=== PATIENT | male | born 1990 | race Caucasian/White ===

== ENCOUNTER 2018-02-28 12:49 | Emergency (ER) | payer OTHER ==
[2018-02-28] MEDS ORDERED: ASPIRIN 81 MG PO STA (14:04)
[2018-02-28] MEDS ORDERED: SODIUM CHLORIDE 0.9% 1,000 ML IV STA (14:04)
[2018-02-28 14:54] LABS: Basophils % (A) 1 %; Eosinophils # (A) 0.1 k/uL (0-0.7); Eosinophils % (A) 2 %; HCT 36.5 % (39.0-53.0); HGB 12.3 gm/dL (13.0-17.5); Lymphocytes # (A) 2.6 k/uL (1.0-4.8); Lymphocytes % (A) 38 %; MCH 28.1 pg (25.0-35.0); MCHC 33.6 g/dL (31.0-37.0); MCV 83.5 fL (80.0-100.0); Mean Platelet Volume 6.6; Monocytes # (A) 0.3 k/uL (0-1.0); Monocytes % (A) 5 %; Neutrophils # (A) 3.5 k/uL (1.3-7.7); Neutrophils % (A) 52 %; Platelet Count 249 k/uL (150-450); RBC 4.37 m/uL (4.30-5.90); RDW 13.2 % (11.5-15.5); WBC 6.7 k/uL (3.8-10.6)
--- NOTE | 2018-02-28 15:01 | XR ---
EXAMINATION TYPE: XR chest 2V DATE OF EXAM: 02/28/2018 COMPARISON: NONE. No prior study available in the PACS system. HISTORY: Chest pain and hypertension, shortness of breath TECHNIQUE: Frontal and lateral views of the chest are obtained. FINDINGS: There is no focal air space opacity, pleural effusion, or pneumothorax seen. The cardiac silhouette size is within normal limits. The osseous structures are intact. IMPRESSION: No acute cardiopulmonary process. No evidence of acute infiltrate or vascular decompensa tion.
[2018-02-28 15:08] LABS: Creatine Kinase 62 U/L (55-170)
--- NOTE | 2018-02-28 15:09 | US ---
EXAMINATION TYPE: US venous doppler duplex LE LT DATE OF EXAM: 02/28/2018 2:45 PM COMPARISON: NONE CLINICAL HISTORY: Left leg Pain and swelling. SIDE PERFORMED: Left TECHNIQUE: The lower extremity deep venous system is examined utilizing real time linear array sonog rose with graded compression, doppler sonography and color-flow sonography. VESSELS IMAGED: External Iliac Vein (EIV) Common Femoral Vein Deep Femoral Vein Greater Saphenous Vein * Femoral Vein Popliteal Vein Small Saphenous Vein * Proximal Calf Veins (* superficial vessels) Left Leg: Negative for DVT Multiple lymph nodes visualized within the left groin, largest measuring 1.5 x 0.7 x 1.0 cm IMPRESSION: Grayscale, color doppler, spectral doppler imaging performed of the deep veins of the lo wer extremities. There is normal flow, compressibility, vascular waveforms. No evidence to suggest deep venous thrombosis at or above the left knee. Multiple lymph nodes as described above the largest one measuring 1.5 x 0.7 x 1 cm.
[2018-02-28 15:10] LABS: ALT 41 U/L (21-72); AST 22 U/L (17-59); Alkaline Phosphatase 34 U/L (38-126); Anion Gap 4 mmol/L; Blood Urea Nitrogen 20 mg/dL (9-20); C Reactive Protein <5.0 mg/L (<10.0); Calcium 9.1 mg/dL (8.4-10.2); Carbon Dioxide 31 mmol/L (22-30); Chloride 102 mmol/L (98-107); Glucose 88 mg/dL (74-99); Magnesium 2.1 mg/dL (1.6-2.3); Potassium 5.2 mmol/L (3.5-5.1); Sodium 137 mmol/L (137-145); Total Bilirubin 0.3 mg/dL (0.2-1.3); Total Protein 6.4 g/dL (6.3-8.2)
[2018-02-28 15:16] LABS: D-Dimer 0.22 mg/L FEU (<0.60); INR 1.1 (<1.2); Partial Thromboplastin Time 24.2 sec (22.0-30.0); Prothrombin Time 10.4 sec (9.0-12.0)
[2018-02-28 15:21] LABS: Creatine Kinase MB 0.3 ng/mL (0.0-2.4); Troponin I <0.012 ng/mL (0.000-0.034)
[2018-02-28 15:37] VITALS: RESP 18; TEMP 98.2
--- NOTE | 2018-02-28 15:45 | ED ---
Extremity Problem HPI - General Chief complaint: Extremity Problem,Nontraumatic Stated complaint: lt ankle/calf pain Time Seen by Provider: 02/28/18 13:14 Source: patient, RN notes reviewed Mode of arrival: ambulatory Limitations: no limitations - History of Present Illness Initial comments: This is a 27-year-old male who presents to the emergency department with chief complaint of left lower extremity pain and swelling. Patient is a resident at [facility]. Patient states that he has had multiple surgeries on the left ankle. He states that yesterday he noticed pain and swelling to the left lower extremity. He denies any falls, injuries or trauma. Patient states that there is pain in his calf as well as the ankle. Denies any recent surgeries or hospitalizations. Denies history of blood clots. Patient states that this morning at approximately 7:15 AM he developed chest pain. He describes it as intermittent and sharp and stabbing over the left side of his chest. He admits to associated shortness of breath during these episodes. Denies any fevers or chills, abdominal pain, nausea or vomiting, dizziness or headache. He reports a history of chronic pancreatitis and fluid overload. He states he has had to have fluid drained off of his lungs. He states that he was told that the left side of his heart is weaker than the right side of his heart. Patient also reports early onset of cardiac disease in his family. He states that his father first had a heart attack at age 28. - Related Data Allergies Allergy/AdvReac Type Severity Reaction Status Date / Time acetaminophen Allergy Unknown Verified 02/28/18 13:16 [From Tylenol-Codeine] codeine Allergy Unknown Verified 02/28/18 13:16 [From Tylenol-Codeine] ketorolac [From Toradol] Allergy Unknown Verified 02/28/18 13:16 tramadol Allergy Unknown Verified 02/28/18 13:16 Review of Systems ROS Statement: Those systems with pertinent positive or pertinent negative responses have been documented in the HPI. ROS Other: All systems not noted in ROS Statement are negative. Past Medical History Past Medical History: Hypertension History of Any Multi-Drug Resistant Organisms: None Reported Past Surgical History: Appendectomy, Cholecystectomy Additional Past Surgical History / Comment(s): left ankle times 4 Past Psychological History: Anxiety, Depression Smoking Status: Current every day smoker Past Alcohol Use History: None Reported Past Drug Use History: Cocaine, Heroin General Exam - General Exam Comments Initial Comments: General: Awake and alert, well-developed; in no apparent distress. HEENT: Head atraumatic, normocephalic. Pupils are equal, round and reactive to light. Extraocular movements intact. Oropharynx moist without erythema or exudate. Neck: Supple. Normal ROM. Cardiovascular: Regular rate and rhythm. No murmurs, rubs or gallops. Chest symmetrical. Respiratory: Lungs clear to auscultation bilaterally. No wheezes, rales or rhonchi. Normal respiratory effort with no use of accessory muscles. Musculoskeletal: Normal range of motion of bilateral upper and lower extremities. There is generalized soft tissue swelling and tenderness of the left ankle. Tenderness on palpation of posterior left calf. Sensation is intact. Pedal pulses are 2+ equal and palpable bilaterally. Skin: [place], warm and dry without rashes or lesions. Neurological: Alert and oriented x3. CN II-XII grossly intact. Speech is fluent and answers are appropriate. No focal neuro deficits. Psychiatric: Normal mood and affect. No overt signs of depression or anxiety noted. Limitations: no limitations Course Vital Signs 02/28/18 02/28/18 13:16 15:37 Temperature 98 F 98.2 F Pulse Rate 48 L 47 L Respiratory 16 18 Rate Blood Pressure 95/50 98/60 O2 Sat by Pulse 100 97 Oximetry Medical Decision Making - Medical Decision Making This is a 27-year-old male who presented to the emergency department with chief complaint of left lower extremity pain and swelling. Patient states that he's had multiple surgeries on the left ankle. He states that the left ankle and calf became swollen and painful yesterday. On physical examination, there is generalized soft tissue swelling to the left ankle with tenderness on palpation of the left ankle and calf. Patient is neurovascularly intact. An x-ray of the left ankle was obtained which revealed no acute abnormalities. Ultrasound venous Doppler duplex of the left lower extremity was negative for an acute DVT. Patient also complained of onset of chest pain and shortness of breath that began this morning. EKG revealed sinus bradycardia. Patient was given a liter bolus of fluids. Chest x-ray revealed no acute abnormalities. CBC and CMP were unremarkable. Troponin and d-dimer were negative. Patient's vital signs are stable and he is in no acute distress. He will be discharged home at this time. All questions were answered. - Lab Data Result diagrams: 02/28/18 14:20 02/28/18 14:20 Lab Results 02/28/18 02/28/18 02/28/18 Range/Units 14:20 14:20 14:20 WBC 6.7 (3.8-10.6) k/uL RBC 4.37 (4.30-5.90) m/uL Hgb 12.3 L (13.0-17.5) gm/dL Hct 36.5 L (39.0-53.0) % MCV 83.5 (80.0-100.0) fL MCH 28.1 (25.0-35.0) pg MCHC 33.6 (31.0-37.0) g/dL RDW 13.2 (11.5-15.5) % Plt Count 249 (150-450) k/uL Neutrophils % 52 % Lymphocytes % 38 % Monocytes % 5 % Eosinophils % 2 % Basophils % 1 % Neutrophils # 3.5 (1.3-7.7) k/uL Lymphocytes # 2.6 (1.0-4.8) k/uL Monocytes # 0.3 (0-1.0) k/uL Eosinophils # 0.1 (0-0.7) k/uL Basophils # 0.0 (0-0.2) k/uL PT (9.0-12.0) sec INR (<1.2) APTT (22.0-30.0) sec D-Dimer (<0.60) mg/L FEU Sodium 137 (137-145) mmol/L Potassium 5.2 H (3.5-5.1) mmol/L Chloride 102 (98-107) mmol/L Carbon Dioxide 31 H (22-30) mmol/L Anion Gap 4 mmol/L BUN 20 (9-20) mg/dL Creatinine 1.10 (0.66-1.25) mg/dL Est GFR (CKD-EPI)AfAm >90 (>60 ml/min/1.73 sqM) Est GFR (CKD-EPI)NonAf >90 (>60 ml/min/1.73 sqM) Glucose 88 (74-99) mg/dL Calcium 9.1 (8.4-10.2) mg/dL Magnesium 2.1 (1.6-2.3) mg/dL Total Bilirubin 0.3 (0.2-1.3) mg/dL AST 22 (17-59) U/L ALT 41 (21-72) U/L Alkaline Phosphatase 34 L (38-126) U/L Total Creatine Kinase 62 (55-170) U/L CK-MB (CK-2) 0.3 (0.0-2.4) ng/mL CK-MB (CK-2) Rel Index 0.5 Troponin I <0.012 (0.000-0.034) ng/mL C-Reactive Protein <5.0 (<10.0) mg/L Total Protein 6.4 (6.3-8.2) g/dL Albumin 4.0 (3.5-5.0) g/dL 02/28/18 Range/Units 14:20 WBC (3.8-10.6) k/uL RBC (4.30-5.90) m/uL Hgb (13.0-17.5) gm/dL Hct (39.0-53.0) % MCV (80.0-100.0) fL MCH (25.0-35.0) pg MCHC (31.0-37.0) g/dL RDW (11.5-15.5) % Plt Count (150-450) k/uL Neutrophils % % Lymphocytes % % Monocytes % % Eosinophils % % Basophils % % Neutrophils # (1.3-7.7) k/uL Lymphocytes # (1.0-4.8) k/uL Monocytes # (0-1.0) k/uL Eosinophils # (0-0.7) k/uL Basophils # (0-0.2) k/uL PT 10.4 (9.0-12.0) sec INR 1.1 (<1.2) APTT 24.2 (22.0-30.0) sec D-Dimer 0.22 (<0.60) mg/L FEU Sodium (137-145) mmol/L Potassium (3.5-5.1) mmol/L Chloride (98-107) mmol/L Carbon Dioxide (22-30) mmol/L Anion Gap mmol/L BUN (9-20) mg/dL Creatinine (0.66-1.25) mg/dL Est GFR (CKD-EPI)AfAm (>60 ml/min/1.73 sqM) Est GFR (CKD-EPI)NonAf (>60 ml/min/1.73 sqM) Glucose (74-99) mg/dL Calcium (8.4-10.2) mg/dL Magnesium (1.6-2.3) mg/dL Total Bilirubin (0.2-1.3) mg/dL AST (17-59) U/L ALT (21-72) U/L Alkaline Phosphatase (38-126) U/L Total Creatine Kinase (55-170) U/L CK-MB (CK-2) (0.0-2.4) ng/mL CK-MB (CK-2) Rel Index Troponin I (0.000-0.034) ng/mL C-Reactive Protein (<10.0) mg/L Total Protein (6.3-8.2) g/dL Albumin (3.5-5.0) g/dL - EKG Data EKG Comments: 14:09:42. Marked sinus bradycardia, early repolarization. Ventricular rate 43 bpm, IA interval 132, QRS duration 90, QT/QTc 442/373. - Radiology Data Radiology results: report reviewed Chest x-ray impression: No acute cardiopulmonary process. No evidence of acute infiltrate or vascular decompensation. Ultrasound venous Doppler left lower extremity impression: Nance scale, color Doppler, spectral Doppler imaging performed at the deep veins of the lower extremities. There is normal flow, compressibility, vascular waveforms. No evidence to suggest deep venous thromboses at or above the left knee. Multiple lymph nodes within the left groin the largest one measuring 1.5 x 0.7 x 1 cm. Disposition Clinical Impression: Left ankle pain, Atypical chest pain Disposition: HOME SELF-CARE Condition: Good Instructions: Swollen Joint (ED), Chest Pain (ED) Additional Instructions: Please follow up with primary care provider within 1-2 days. Return to emergency department if symptoms should worsen or any concerns arise. Is patient prescribed a controlled substance at d/c from ED?: No Referrals: None,Stated [Primary Care Provider] - 1-2 days Time of Disposition: 16:37
[2018-02-28 16:26] VITALS: BP 99/58; PULSE 48
--- NOTE | 2018-02-28 16:26 | XR ---
EXAMINATION TYPE: XR ankle complete LT DATE OF EXAM: 02/28/2018 CLINICAL HISTORY: Pain TECHNIQUE: Frontal, lateral and oblique images of the left ankle are obtained. COMPARISON: None. No prior study available in the PACS system. FINDINGS: There is no acute fracture/dislocation evident in the left ankle. Moderate soft tissue sw elling is noted involving the medial and lateral malleolus. 2 metallic screws are traversing and singh sfixing the medial malleolus. The ankle mortise appears within normal limits. IMPRESSION: Postsurgical changes with 2 metallic compression screws transfixing the distal fibula and lateral mal leolus. Moderate soft tissue swelling involving the medial lateral malleolus with preservation of the ankle mortise. No focal bony destruction.
== END 2018-02-28 16:47 | disposition home or self-care (01) ==
LOC: EC 12:49
DX: M25.572 Pain in left ankle and joints of left foot (principal); R07.89 Other chest pain; M79.89 Other specified soft tissue disorders; R00.1 Bradycardia, unspecified; F17.200 Nicotine dependence, unspecified, uncomplicated; Z88.5 Allergy status to narcotic agent; Z88.6 Allergy status to analgesic agent
CPT/HCPCS: 36415; 71046; 80053; 82550; 82553; 83735; 84484; 85025; 85379; 85610; 85730; 86140; 93005; 96360; 96361; 99284

== ENCOUNTER 2018-03-27 11:17 | Emergency (ER) | payer OTHER ==
[2018-03-27 11:38] VITALS: RESP 18
[2018-03-27] MEDS ORDERED: hydrOXYzine HCL 25 MG TAB PO STA ×2 (11:48→12:03)
[2018-03-27] MEDS ORDERED: DEXAMETHASONE 4 MG TAB PO STA (11:48)
--- NOTE | 2018-03-27 12:08 | ED ---
General Adult HPI - General Chief complaint: Skin/Abscess/Foreign Body Stated complaint: ALLERGIC REACTION, STEPHEN Source: patient Mode of arrival: ambulatory Limitations: no limitations - History of Present Illness Initial comments: Dictation was produced using [employer] dictation software. please excuse any grammatical, word or spelling errors. Chief Complaint: 27-year-old male presents with rash History of Present Illness: Patient is a 27-year-old male with no significant past medical history presents with a rash. Patient has psychiatric history and is currently undergoing hair when recovery. He gets shots frequently. 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 He went home after his first shift 2 days ago. He will that the next day and had a diffuse itchy rash to his entire body. Patient is told to seek medical attention by his [employer] staff member to seek medical attention. The ROS documented in this emergency department record has been reviewed and confirmed by me. Those systems with pertinent positive or negative responses have been documented in the HPI. All other systems are other negative and/or noncontributory. - Related Data Previous Rx's Medication Instructions Recorded hydrOXYzine HCL [Atarax] 25 mg PO TID PRN #20 tab 03/27/18 Allergies Allergy/AdvReac Type Severity Reaction Status Date / Time codeine Allergy Unknown Verified 03/27/18 11:38 [From Tylenol-Codeine] ketorolac [From Toradol] Allergy Unknown Verified 03/27/18 11:38 tramadol Allergy Unknown Verified 03/27/18 11:38 Review of Systems ROS Statement: Those systems with pertinent positive or pertinent negative responses have been documented in the HPI. ROS Other: All systems not noted in ROS Statement are negative. Past Medical History Past Medical History: Hypertension Additional Past Medical History / Comment(s): chronic pancreatitis History of Any Multi-Drug Resistant Organisms: None Reported Past Surgical History: Appendectomy, Cholecystectomy, Orthopedic Surgery Additional Past Surgical History / Comment(s): left ankle times 4 Past Psychological History: Anxiety, Depression Smoking Status: Current every day smoker Past Alcohol Use History: None Reported Past Drug Use History: None Reported General Exam - General Exam Comments Initial Comments: PHYSICAL EXAM: General Impression: Alert and oriented x3, not in acute distress HEENT: Normocephalic atraumatic, extra-ocular movements intact, pupils equal and reactive to light bilaterally, mucous membranes moist. Cardiovascular: Heart regular rate and rhythm, S1&S2 audible, no murmurs, rubs or gallops Chest: Lungs clear to auscultation bilaterally, no rhonchi, no wheeze, no rales Abdomen: Bowel sounds present, abdomen soft, non-tender, non-distended, no organomegaly Musculoskeletal: Pulses present and equal in all extremities, no peripheral edema Motor: Power 5/5 bilaterally, no focal deficits noted Neurological: CN II-XII grossly intact, no focal motor or sensory deficits noted Skin: Erythematous macular rash to the entire surface area of the skin intermittently. There are small lesions measuring approximately 3 x 4 L there are diffuse through the extremities and back, no conjunctival lesions, no intraoral lesions Psych: Normal affect and mood Limitations: no limitations Course Vital Signs 03/27/18 11:35 Temperature 98.2 F Pulse Rate 73 Respiratory 18 Rate Blood Pressure 125/81 O2 Sat by Pulse 98 Oximetry Medical Decision Making - Medical Decision Making ED course: 27-year-old male with chief complaint of rash. Clinical presentation suspicious for erythema multiforme. vital signs upon arrival are within acceptable limits. There is some suspicion that this may represent rash secondary to bedbugs however more likely to be erythema multiforme. Strong clinical suspicion that this is a self-limiting rash. Patient does not have a primary care physician. Given Atarax and Decadron. Patient be discharged with prescription for hydroxyzine for when necessary itching. No clinical suspicion of scabies. No indication for antibiotics at this time. Disposition Clinical Impression: Rash Disposition: HOME SELF-CARE Condition: Good Instructions: Acute Rash (ED) Prescriptions: hydrOXYzine HCL [Atarax] 25 mg PO TID PRN #20 tab PRN Reason: Itching Is patient prescribed a controlled substance at d/c from ED?: No Referrals: None,Stated [Primary Care Provider] - 1-2 days Time of Disposition: 12:08
[2018-03-27 12:50] VITALS: BP 132/80; PULSE 72; TEMP 97.5
== END 2018-03-27 12:50 | disposition home or self-care (01) ==
LOC: EC 11:17
DX: R21 Rash and other nonspecific skin eruption (principal); R06.00 Dyspnea, unspecified; F17.200 Nicotine dependence, unspecified, uncomplicated; Z88.5 Allergy status to narcotic agent; Z88.6 Allergy status to analgesic agent
CPT/HCPCS: 99284; J8540

== ENCOUNTER 2018-05-20 13:01 | Emergency (ER) | payer OTHER ==
[2018-05-20] MEDS ORDERED: IPRATROPIUM-ALBUTEROL 3 ML NEB INHALATION STA (14:27)
[2018-05-20] MEDS ORDERED: IBUPROFEN 600 MG TAB PO STA (14:27)
--- NOTE | 2018-05-20 14:53 | XR ---
EXAMINATION TYPE: XR chest 2V DATE OF EXAM: 05/20/2018 COMPARISON: Prior chest 02/28/2018 HISTORY: Cough and congestion TECHNIQUE: Frontal and lateral views of the chest are obtained. FINDINGS: There is no focal air space opacity, pleural effusion, or pneumothorax seen. The cardiac silhouette size is within normal limits. The osseous structures are intact. IMPRESSION: No acute cardiopulmonary process.
[2018-05-20] MEDS ORDERED: predniSONE 20 MG TAB PO STA ×2 (15:09→15:40)
--- NOTE | 2018-05-20 15:12 | ED ---
URI HPI - General Chief Complaint: Upper Respiratory Infection Stated Complaint: Cough Time Seen by Provider: 05/20/18 14:13 Source: patient, RN notes reviewed, old records reviewed Mode of arrival: ambulatory Limitations: no limitations - History of Present Illness Initial Comments: 27 year old male with one week of cough, congestion and shortness of breath. Patient reports that he has been near other ill people. No recent motrin or tylenol. Patient complains of body ache, fever. Denies abdominal pain and vomiting. Patient reports history of past heroin abuse. Reports history of pancreatitis. Patient is a smoker. Patient reports sore throat due to cough. - Related Data Previous Rx's Medication Instructions Recorded Acetaminophen Tab [Tylenol Tab] 500 mg PO Q6H #20 tablet 05/20/18 Albuterol Inhaler [Ventolin Hfa 1 - 2 puff INHALATION RT-Q6H PRN 05/20/18 Inhaler] #1 inhaler Azithromycin [Zithromax] 250 mg PO DAILY #6 tab 05/20/18 Ibuprofen 600 mg PO TID #20 tablet 05/20/18 guaiFENesin-DM 600/30MG [Mucinex 1 each PO Q12HR #20 tab.er.12h 05/20/18 Dm] methylPREDNISolone Dose Pack 4 mg PO DIRECTED #21 package 05/20/18 [Medrol Dose Pack] Allergies Allergy/AdvReac Type Severity Reaction Status Date / Time codeine Allergy Unknown Verified 05/20/18 13:37 [From Tylenol-Codeine] ketorolac [From Toradol] Allergy Unknown Verified 05/20/18 13:37 tramadol Allergy Unknown Verified 05/20/18 13:37 Review of Systems ROS Statement: Those systems with pertinent positive or pertinent negative responses have been documented in the HPI. ROS Other: All systems not noted in ROS Statement are negative. Past Medical History Past Medical History: Hypertension Additional Past Medical History / Comment(s): chronic pancreatitis History of Any Multi-Drug Resistant Organisms: None Reported Past Surgical History: Appendectomy, Cholecystectomy, Orthopedic Surgery Additional Past Surgical History / Comment(s): left ankle times 4 Past Psychological History: Anxiety, Depression Smoking Status: Current every day smoker Past Alcohol Use History: None Reported Past Drug Use History: None Reported General Exam - General Exam Comments Initial Comments: Well appearing 27 yea rold male, no distress. Limitations: no limitations General appearance: alert, in no apparent distress Head exam: Present: atraumatic, normocephalic, normal inspection Eye exam: Present: normal appearance, PERRL, EOMI. Absent: scleral icterus, conjunctival injection, periorbital swelling ENT exam: Present: normal exam, mucous membranes moist Neck exam: Present: normal inspection. Absent: tenderness, meningismus, lymphadenopathy Respiratory exam: Present: normal lung sounds bilaterally, wheezes, other (cough ). Absent: respiratory distress, rales, rhonchi, stridor Cardiovascular Exam: Present: regular rate, normal rhythm, normal heart sounds. Absent: systolic murmur, diastolic murmur, rubs, gallop, clicks GI/Abdominal exam: Present: soft, normal bowel sounds. Absent: distended, tenderness, guarding, rebound, rigid Extremities exam: Present: normal inspection, full ROM, normal capillary refill. Absent: tenderness, pedal edema, joint swelling, calf tenderness Back exam: Present: normal inspection Course Vital Signs 05/20/18 05/20/18 05/20/18 13:05 15:05 15:17 Temperature 99.0 F Pulse Rate 112 H 92 90 Respiratory 22 Rate Blood Pressure 114/62 O2 Sat by Pulse 96 Oximetry 05/20/18 15:43 Temperature 98 F Pulse Rate 99 Respiratory 16 Rate Blood Pressure 154/79 O2 Sat by Pulse 98 Oximetry Medical Decision Making - Medical Decision Making 27 year old male with one week of cough, congestion and shortness of breath. Patient reports that he has been near other ill people. No recent motrin or tylenol. Patient is slight fever 99.8. Given ibuprofen, tylenol. He had wheezing noted, given douneb and IMsolumedrol. Patient appears well, and in no sign of respiratory distress. Discussed normal CXR but will treat for bronchitis with medrol dose pack and azithromycin. Discussed that patient should follow up with PCP. Discussed patient needs close return parameters. - Radiology Data Radiology results: report reviewed Normal CXR noted. Disposition Clinical Impression: Bronchitis Disposition: HOME SELF-CARE Condition: Good Instructions: Acute Bronchitis (ED) Additional Instructions: Patient advised follow-up with primary care provider. Return to emergency department if any alarming signs or symptoms occur. Prescriptions: Acetaminophen Tab [Tylenol Tab] 500 mg PO Q6H #20 tablet Albuterol Inhaler [Ventolin Hfa Inhaler] 1 - 2 puff INHALATION RT-Q6H PRN #1 inhaler PRN Reason: Shortness Of Breath Azithromycin [Zithromax] 250 mg PO DAILY #6 tab guaiFENesin-DM 600/30MG [Mucinex Dm] 1 each PO Q12HR #20 tab.er.12h Ibuprofen 600 mg PO TID #20 tablet methylPREDNISolone Dose Pack [Medrol Dose Pack] 4 mg PO DIRECTED #21 package Is patient prescribed a controlled substance at d/c from ED?: No Referrals: None,Stated [Primary Care Provider] - 1-2 days Cintia Garzon MD [STAFF PHYSICIAN] - 1-2 days Time of Disposition: 15:09
[2018-05-20 15:44] VITALS: BP 154/79; PULSE 99; RESP 16; TEMP 98
== END 2018-05-20 15:43 | disposition home or self-care (01) ==
LOC: EC 13:01
DX: J40 Bronchitis, not specified as acute or chronic (principal); F17.200 Nicotine dependence, unspecified, uncomplicated; Z88.5 Allergy status to narcotic agent; Z88.6 Allergy status to analgesic agent
CPT/HCPCS: 94640; 71046; 99285; J7512

== ENCOUNTER 2019-01-15 11:40 | Emergency (ER) | payer OTHER ==
[2019-01-15 11:49] VITALS: PULSE 72
--- NOTE | 2019-01-15 12:06 | ED ---
Extremity Problem HPI - General Chief complaint: Extremity Problem,Nontraumatic Stated complaint: Infection in Hand Time Seen by Provider: 01/15/19 11:56 Source: patient Mode of arrival: ambulatory Limitations: no limitations - History of Present Illness Initial comments: 28-year-old male with history of substance abuse on oxycodone 10 mg for chronic pain presenting today for chief complaint of right hand pain. Patient states he had a previous infection in October was hospitalized. He states he was then sent to a residential secondary to his addiction not being able to go home with a PICC line. He states he is given IV antibiotics. He states he was discharged home however has had chronic pain in the right hand sense. Patient states his home medications that seem to be working. He's been noting increasing pain. He states he's felt it seemed swollen. Patient denies any redness. Remaining review of systems negative. Upon arrival patient appears well no signs acute distress. Afebrile. - Related Data Home Medications Medication Instructions Recorded Confirmed Ibuprofen [Motrin] 600 mg PO BID PRN 01/15/19 01/15/19 Metoprolol Tartrate [Lopressor] 50 mg PO BID 01/15/19 01/15/19 Ondansetron HCl [Zofran] 8 mg PO BID PRN 01/15/19 01/15/19 cloNIDine 0.1 MG/24HR PATCH 1 patch TRANSDERM Q7D 01/15/19 01/15/19 [Catapres-TTS] oxyCODONE HCL [oxyCODONE HCL (IR)] 10 mg PO Q4H PRN 01/15/19 01/15/19 Allergies Allergy/AdvReac Type Severity Reaction Status Date / Time codeine Allergy Unknown Verified 01/15/19 12:47 [From Tylenol-Codeine] ketorolac [From Toradol] Allergy Unknown Verified 01/15/19 12:47 tramadol Allergy Unknown Verified 01/15/19 12:47 Review of Systems ROS Statement: Those systems with pertinent positive or pertinent negative responses have been documented in the HPI. ROS Other: All systems not noted in ROS Statement are negative. Past Medical History Past Medical History: Hypertension Additional Past Medical History / Comment(s): chronic pancreatitis History of Any Multi-Drug Resistant Organisms: None Reported Past Surgical History: Appendectomy, Cholecystectomy, Orthopedic Surgery Additional Past Surgical History / Comment(s): left ankle times 4 Past Psychological History: Anxiety, Depression Smoking Status: Current every day smoker Past Alcohol Use History: None Reported Past Drug Use History: None Reported General Exam - General Exam Comments Initial Comments: General: The patient is awake and alert, in no distress, and does not appear acutely ill. Eye: Pupils are equal, round and reactive to light, extra-ocular movements are intact. No nystagmus. There is normal conjunctiva bilaterally. No signs of icterus. Ears, nose, mouth and throat: There are moist mucous membranes and no oral lesions. Neck: The neck is supple, there is no tenderness or JVD. Cardiovascular: There is a regular rate and rhythm. No murmur, rub or gallop is appreciated. Respiratory: Lungs are clear to auscultation, respirations are non-labored, breath sounds are equal. No wheezes, stridor, rales, or rhonchi. Musculoskeletal: Normal inspection the hands bilaterally there is no erythema there is no soft tissue swelling. Patient able to fully range MTP DIP and PIP joints. There is no fusiform swelling there is no flexed positioning. Patient does admit to discomfort with range of motion in all digits. Normal ROM, no tenderness. Strength 5/5. Sensation intact. Radial pulses equal bilaterally 2+. Neurological: A&O x 3. CN II-XII intact, There are no obvious motor or sensory deficits. Coordination appears grossly intact. Speech is normal. Skin: Skin is warm and dry and no rashes or lesions are noted. Psychiatric: Cooperative, appropriate mood & affect, normal judgment. Limitations: no limitations Course Vital Signs 01/15/19 01/15/19 11:46 13:39 Temperature 98.7 F 97.9 F Pulse Rate 72 72 Respiratory 16 18 Rate Blood Pressure 111/70 106/78 O2 Sat by Pulse 99 99 Oximetry Medical Decision Making - Medical Decision Making 28-year-old male presenting for right hand pain. Patient states he was recently treated for an infection via IV antibiotics. Imaging studies reveal no findings consistent with an osteomyelitis there is no findings on examination are consistent with infection no swelling no redness no warmth. Patient is able to range the digits. Patient states the pain has been chronic since he had the infection. Patient goes to pain management clinic and is on opioids outpatient. Patient requesting more pain medication. Patient did have somewhat drug- seeking behavior.Patient was provided a dose of home medications. Given return parameters for redness, swelling, fevers. Patient was agreeable with care plan and discharge. I recommended seeking further management of pain with primary, unless increasing/different characteristic from chronic pain then I recommended return to the ER. Discussed case with Dr. Arguelles who was agreeable with care plan. - Lab Data Result diagrams: 01/15/19 12:30 01/15/19 12:30 Lab Results 01/15/19 01/15/19 Range/Units 12:30 12:30 WBC 8.2 (3.8-10.6) k/uL RBC 5.04 (4.30-5.90) m/uL Hgb 14.1 (13.0-17.5) gm/dL Hct 41.3 (39.0-53.0) % MCV 82.1 (80.0-100.0) fL MCH 28.0 (25.0-35.0) pg MCHC 34.2 (31.0-37.0) g/dL RDW 13.3 (11.5-15.5) % Plt Count 301 (150-450) k/uL Neutrophils % 59 % Lymphocytes % 28 % Monocytes % 8 % Eosinophils % 4 % Basophils % 0 % Neutrophils # 4.8 (1.3-7.7) k/uL Lymphocytes # 2.3 (1.0-4.8) k/uL Monocytes # 0.6 (0-1.0) k/uL Eosinophils # 0.3 (0-0.7) k/uL Basophils # 0.0 (0-0.2) k/uL Sodium 139 (137-145) mmol/L Potassium 5.1 (3.5-5.1) mmol/L Chloride 108 H (98-107) mmol/L Carbon Dioxide 21 L (22-30) mmol/L Anion Gap 10 mmol/L BUN 17 (9-20) mg/dL Creatinine 1.47 H (0.66-1.25) mg/dL Est GFR (CKD-EPI)AfAm 73 (>60 ml/min/1.73 sqM) Est GFR (CKD-EPI)NonAf 63 (>60 ml/min/1.73 sqM) Glucose 115 H (74-99) mg/dL Calcium 9.1 (8.4-10.2) mg/dL Total Bilirubin 1.1 (0.2-1.3) mg/dL AST 55 (17-59) U/L ALT 60 (21-72) U/L Alkaline Phosphatase 53 (38-126) U/L Total Protein 7.9 (6.3-8.2) g/dL Albumin 4.6 (3.5-5.0) g/dL Disposition Clinical Impression: Chronic pain of right hand Disposition: HOME SELF-CARE Condition: Good Instructions (If sedation given, give patient instructions): Chronic Pain (ED) Additional Instructions: Please use previously prescribed medication as discussed. Please follow-up with family doctor in the next 2 days. Please return to emergency room if the symptoms increase or worsen or for any other concerns-redness, swelling, warmth/redness, fever. Is patient prescribed a controlled substance at d/c from ED?: No Referrals: None,Stated [Primary Care Provider] - 1-2 days [facility] [NON-STAFF] - 1-2 days Time of Disposition: 13:13
--- NOTE | 2019-01-15 12:37 | XR ---
EXAMINATION TYPE: XR hand complete RT DATE OF EXAM: 01/15/2019 COMPARISON: NONE HISTORY: Pain, bone infection TECHNIQUE: Three views are submitted. FINDINGS: The osseous structures are intact. The joint spaces are preserved and there is no acute fracture or dislocation. IMPRESSION: 1. No definite acute fracture or dislocation if symptoms persist, follow-up study in 7 to 10 days wo uld be suggested. No destructive changes diagnostic of osteomyelitis.
[2019-01-15] MEDS ORDERED: ACETAMINOPHEN TAB 325 MG TAB PO STA (12:40)
[2019-01-15 12:41] LABS: Basophils % (A) 0 %; Eosinophils # (A) 0.3 k/uL (0-0.7); Eosinophils % (A) 4 %; HCT 41.3 % (39.0-53.0); HGB 14.1 gm/dL (13.0-17.5); Lymphocytes # (A) 2.3 k/uL (1.0-4.8); Lymphocytes % (A) 28 %; MCHC 34.2 g/dL (31.0-37.0); MCV 82.1 fL (80.0-100.0); Mean Platelet Volume 6.9; Monocytes # (A) 0.6 k/uL (0-1.0); Monocytes % (A) 8 %; Neutrophils # (A) 4.8 k/uL (1.3-7.7); Neutrophils % (A) 59 %; Platelet Count 301 k/uL (150-450); RBC 5.04 m/uL (4.30-5.90); RDW 13.3 % (11.5-15.5); WBC 8.2 k/uL (3.8-10.6)
[2019-01-15 12:54] LABS: Calcium 9.1 mg/dL (8.4-10.2); Total Bilirubin 1.1 mg/dL (0.2-1.3)
[2019-01-15 12:59] LABS: Albumin 4.6 g/dL (3.5-5.0); Potassium 5.1 mmol/L (3.5-5.1); Total Protein 7.9 g/dL (6.3-8.2)
[2019-01-15] MEDS ORDERED: oxyCODONE-APAP 10-325MG 1 EACH TAB PO STA (13:15)
[2019-01-15 13:41] VITALS: BP 106/78; RESP 18; TEMP 97.9
== END 2019-01-15 13:41 | disposition home or self-care (01) ==
LOC: EC 11:40
DX: G89.29 Other chronic pain (principal); M79.641 Pain in right hand; I10 Essential (primary) hypertension; F17.200 Nicotine dependence, unspecified, uncomplicated; Z79.899 Other long term (current) drug therapy; Z88.5 Allergy status to narcotic agent; Z88.6 Allergy status to analgesic agent
CPT/HCPCS: 36415; 80053; 85025; 99283

== ENCOUNTER 2019-02-17 10:52 | Emergency (ER) | payer OTHER ==
--- NOTE | 2019-02-17 11:37 | XR ---
EXAMINATION TYPE: XR shoulder complete RT DATE OF EXAM: 02/17/2019 CLINICAL HISTORY: Pain from fall injury with limited range of motion TECHNIQUE: Three views of the right shoulder are obtained. COMPARISON: None. FINDINGS: There is no acute fracture/dislocation evident in the right shoulder. The acromioclavicul ar and glenohumeral joint spaces appear within normal limits. The visualized ribs are intact and unr emarkable. IMPRESSION: There is no acute fracture or dislocation in the right shoulder.
--- NOTE | 2019-02-17 11:38 | XR ---
EXAMINATION TYPE: XR cervical spine comp DATE OF EXAM: 02/17/2019 TECHNIQUE: Frontal, lateral, oblique, swimmers, and open mouth view of the cervical spine are obtaine d. HISTORY: Neck pain after fall COMPARISON: None FINDINGS: The cervical spine is visualized in its entirety from C1 thru the top of T1 level, it is s atisfactory in alignment without evidence of acute fracture or dislocation. The pre-vertebral soft t issue appears within normal limits. The C1-C2 articulation is within normal limits on the open mouth view. The oblique images are within normal limits. IMPRESSION: No acute fracture or dislocation is seen in the cervical spine.
--- NOTE | 2019-02-17 11:48 | ED ---
Upper Extremity HPI - General Chief Complaint: Extremity Injury, Upper Stated Complaint: rt arm and shoulder injury Time Seen by Provider: 02/17/19 11:08 Source: patient, RN notes reviewed Mode of arrival: ambulatory Limitations: no limitations - History of Present Illness Initial Comments: 28-year-old male presents emergency Department with chief complaint of right shoulder, and neck pain. Patient states he fell from ladder a few days ago. Patient states that he already had problems with his shoulder in which she has been diagnosed with tendinitis. Patient states that he is going for second opinion on this. Patient states that he was healthy up a 20 foot ladder in which he fell off. Patient states he fell down with no other injuries denies head injury no rib pain. Patient states that he was recently in a alf for finger infection. Patient also states that he took his last pain medication. Patient denies any paresthesias. Patient offers no other complaints. - Related Data Home Medications Medication Instructions Recorded Confirmed Ibuprofen [Motrin] 600 mg PO BID PRN 01/15/19 01/15/19 Metoprolol Tartrate [Lopressor] 50 mg PO BID 01/15/19 01/15/19 Ondansetron HCl [Zofran] 8 mg PO BID PRN 01/15/19 01/15/19 cloNIDine 0.1 MG/24HR PATCH 1 patch TRANSDERM Q7D 01/15/19 01/15/19 [Catapres-TTS] oxyCODONE HCL [oxyCODONE HCL (IR)] 10 mg PO Q4H PRN 01/15/19 01/15/19 Allergies Allergy/AdvReac Type Severity Reaction Status Date / Time codeine Allergy Unknown Verified 02/17/19 10:59 [From Tylenol-Codeine] ketorolac [From Toradol] Allergy Unknown Verified 02/17/19 10:59 tramadol Allergy Unknown Verified 02/17/19 10:59 Review of Systems ROS Statement: Those systems with pertinent positive or pertinent negative responses have been documented in the HPI. ROS Other: All systems not noted in ROS Statement are negative. Past Medical History Past Medical History: Hypertension Additional Past Medical History / Comment(s): chronic pancreatitis History of Any Multi-Drug Resistant Organisms: None Reported Past Surgical History: Appendectomy, Cholecystectomy, Orthopedic Surgery Additional Past Surgical History / Comment(s): left ankle times 4 Past Psychological History: Anxiety, Depression Smoking Status: Current every day smoker Past Alcohol Use History: None Reported Past Drug Use History: None Reported General Exam Limitations: no limitations General appearance: alert, in no apparent distress Head exam: Present: atraumatic, normocephalic, normal inspection Eye exam: Present: normal appearance, PERRL, EOMI. Absent: scleral icterus, conjunctival injection, periorbital swelling ENT exam: Present: normal exam, normal oropharynx, mucous membranes moist, TM's normal bilaterally Neck exam: Present: normal inspection, tenderness (Right paraspinal), full ROM. Absent: meningismus, lymphadenopathy Respiratory exam: Present: normal lung sounds bilaterally. Absent: respiratory distress, wheezes, rales, rhonchi, stridor Cardiovascular Exam: Present: regular rate, normal rhythm, normal heart sounds. Absent: systolic murmur, diastolic murmur, rubs, gallop, clicks Extremities exam: Present: other (Right shoulder limited range of motion secondary to reported pain, neurovascular intact there is no obvious tenderness, no ecchymosis no abrasions) Neurological exam: Present: alert, oriented X3, CN II-XII intact, reflexes normal. Absent: motor sensory deficit Course Vital Signs 02/17/19 10:57 Temperature 98.3 F Pulse Rate 87 Respiratory 18 Rate Blood Pressure 122/81 O2 Sat by Pulse 96 Oximetry Medical Decision Making - Medical Decision Making 28-year-old male presents emergency from for right shoulder and neck discomfort. X-rays were obtained no acute fracture. I did review a massive this patient which shows a long list of chronic opiates, Lyrica and other controlled substances. I did explain the patient that I will not prescribe him narcotics at this time he tells me he has ALLERGIES to Toradol, tramadol and codeine and he also doesn't his kidney dysfunction in which she cannot take any other anti- inflammatories. I did advise him to follow-up with his PCP and provided wrist prescribe him chronic pain meds in the past. Disposition Clinical Impression: Strain of shoulder, Cervical strain Disposition: HOME SELF-CARE Condition: Stable Instructions (If sedation given, give patient instructions): Shoulder Sprain (ED) Additional Instructions: Please return to the Emergency Department if symptoms worsen or any other concerns. Is patient prescribed a controlled substance at d/c from ED?: No Referrals: Leila Ryan MD [Primary Care Provider] - 1-2 days Gerardo Velez MD [STAFF PHYSICIAN] - 1-2 days Time of Disposition: 11:48
[2019-02-17] MEDS ORDERED: HYDROcodone/APAP 5-325MG 1 EACH TAB PO STA (11:50)
[2019-02-17 12:08] VITALS: BP 118/71; PULSE 71; RESP 19; TEMP 98.2
== END 2019-02-17 12:08 | disposition home or self-care (01) ==
LOC: EC 10:52
DX: S46.911A Strain of unspecified muscle, fascia and tendon at shoulder and upper arm level, right arm, initial encounter (principal); S16.1XXA Strain of muscle, fascia and tendon at neck level, initial encounter; I10 Essential (primary) hypertension; F17.200 Nicotine dependence, unspecified, uncomplicated; Z79.899 Other long term (current) drug therapy; Z88.5 Allergy status to narcotic agent; Z88.6 Allergy status to analgesic agent; W11.XXXA Fall on and from ladder, initial encounter
CPT/HCPCS: 72050; 99283

== ENCOUNTER 2019-06-28 11:40 | Emergency (ER) | payer BC, OTHER ==
[2019-06-28 11:47] VITALS: TEMP 97.7
[2019-06-28] MEDS ORDERED: MORPHINE SULFATE 4 MG/ML SYRINGE IV STA (13:14)
[2019-06-28] MEDS ORDERED: ONDANSETRON 4 MG/2 ML VIAL IVP STA (13:14)
[2019-06-28] MEDS ORDERED: SODIUM CHLORIDE 0.9% 1,000 ML IV STA (13:14)
[2019-06-28 13:39] LABS: Basophils % (A) 0 %; Eosinophils # (A) 0.2 k/uL (0-0.7); Eosinophils % (A) 2 %; HCT 42.6 % (39.0-53.0); HGB 14.4 gm/dL (13.0-17.5); Lymphocytes # (A) 2.4 k/uL (1.0-4.8); Lymphocytes % (A) 31 %; MCHC 33.8 g/dL (31.0-37.0); MCV 85.7 fL (80.0-100.0); Mean Platelet Volume 6.5; Monocytes # (A) 0.5 k/uL (0-1.0); Monocytes % (A) 6 %; Neutrophils # (A) 4.7 k/uL (1.3-7.7); Neutrophils % (A) 59 %; Platelet Count 269 k/uL (150-450); RBC 4.97 m/uL (4.30-5.90); RDW 13.7 % (11.5-15.5); WBC 7.9 k/uL (3.8-10.6)
[2019-06-28 13:50] LABS: ALT 35 U/L (21-72); AST 32 U/L (17-59); African American GFR (CKD) >90 (>60 ml/min/1.73 sqM); Albumin 4.5 g/dL (3.5-5.0); Alkaline Phosphatase 53 U/L (38-126); Amylase 53 U/L (30-110); Anion Gap 11 mmol/L; Blood Urea Nitrogen 10 mg/dL (9-20); Calcium 8.9 mg/dL (8.4-10.2); Carbon Dioxide 26 mmol/L (22-30); Chloride 105 mmol/L (98-107); Glucose 97 mg/dL (74-99); Non-African American GFR(CKD) 87 (>60 ml/min/1.73 sqM); Partial Thromboplastin Time 22.7 sec (22.0-30.0); Potassium 3.9 mmol/L (3.5-5.1); Sodium 142 mmol/L (137-145); Total Bilirubin 0.4 mg/dL (0.2-1.3); Total Protein 7.6 g/dL (6.3-8.2)
--- NOTE | 2019-06-28 14:07 | CT ---
EXAMINATION TYPE: CT abdomen pelvis w con DATE OF EXAM: 06/28/2019 COMPARISON: None HISTORY: Epigastric pain with nausea, vomiting and diarrhea CT DLP: 2560.7 mGycm Automated exposure control for dose reduction was used. TECHNIQUE: Helical acquisition of images was performed from the lung bases through the pelvis. CONTRAST: Performed without Oral Contrast and with IV Contrast, patient injected with 100 mL of Isovue 300. FINDINGS: LUNG BASES: Bibasilar subsegmental atelectasis. LIVER/GB: No significant abnormality is appreciated. Cholecystectomy clips are present. PANCREAS: No significant abnormality is seen. SPLEEN: No splenomegaly. ADRENALS: No significant abnormality is seen. KIDNEYS: There is a punctate nonobstructing left upper pole renal calculus measuring 2 mm on coronal image 67. No hydronephrosis of either kidney. Kidneys enhance and excrete symmetrically. FREE AIR: No free air is visualized. URINARY BLADDER: Urinary bladder pinzon are thickened however the urinary bladder is incompletely dis tended.. ADENOPATHY: No greater than 1 cm short axis lymph node in the abdomen or pelvis. OSSEOUS STRUCTURES: No significant abnormality is seen. BOWEL: Appendix is surgically absent. No dilated large or small bowel. IMPRESSION: 1. NO ACUTE FINDINGS TO ACCOUNT FOR PATIENT'S SYMPTOMS. 2. URINARY BLADDER WALL THICKENING IS LIKELY RELATED TO INCOMPLETE DISTENTION HOWEVER CORRELATE WITH URINALYSIS. 3. PUNCTATE NONOBSTRUCTING LEFT UPPER POLE RENAL CALCULUS.
[2019-06-28] MEDS ORDERED: PANTOPRAZOLE 40 MG/10 ML VIAL IVP STA (14:16)
[2019-06-28 14:19] LABS: Appearance,Urine Clear (Clear); Bilirubin,Urine Negative (Negative); Blood,Urine Negative (Negative); Color,Urine Yellow; Glucose,Urine (UA) Negative (Negative); Ketones,Urine Negative (Negative); Leukocyte Esterase,Urine Negative (Negative); Nitrite,Urine Negative (Negative); Protein,Urine Trace (Negative); Specific Gravity,Urine 1.025 (1.001-1.035); Urobilinogen,Urine <2.0 mg/dL (<2.0)
[2019-06-28] MEDS ORDERED: METOCLOPRAMIDE 5 MG/ML 2 ML VIAL IVP STA (14:33)
--- NOTE | 2019-06-28 14:48 | ED ---
Abdominal Pain HPI - General Chief Complaint: Abdominal Pain Stated Complaint: CHEST PAIN Time Seen by Provider: 06/28/19 12:50 Source: patient Mode of arrival: ambulatory Limitations: no limitations - History of Present Illness Initial Comments: Patient is a 28-year-old male presenting to emergency Department with complaints of epigastric and left upper quadrant pain has been increasing over the past 2-3 weeks. The patient states he has a history of chronic pancreatitis and feels like this is an acute flare. Patient states he has not had a flareup since he got his gallbladder removed approximately 2 years ago. Patient has also been nauseous, vomiting and had diarrhea. Patient describes the pain as mainly in the left upper quadrant that does radiate to his back at times. States it started approximately 3 weeks ago and just has been increasing and discomfort since. Patient states he works a lot and has tried to ignore the pain. Patient denies fever, chest pain, shortness of breath, cough. Patient also has history of appendectomy, no other abdominal surgeries. Patient has no other complaints at this time. Upon arrival to ER, vital signs are stable, afebrile. - Related Data Home Medications Medication Instructions Recorded Confirmed Ibuprofen [Motrin] 600 mg PO BID PRN 01/15/19 01/15/19 Metoprolol Tartrate [Lopressor] 50 mg PO BID 01/15/19 01/15/19 Ondansetron HCl [Zofran] 8 mg PO BID PRN 01/15/19 01/15/19 cloNIDine 0.1 MG/24HR PATCH 1 patch TRANSDERM Q7D 01/15/19 01/15/19 [Catapres-TTS] oxyCODONE HCL [oxyCODONE HCL (IR)] 10 mg PO Q4H PRN 01/15/19 01/15/19 Previous Rx's Medication Instructions Recorded Ondansetron Odt [Zofran Odt] 4 mg PO Q8HR PRN #10 tab 06/28/19 Allergies Allergy/AdvReac Type Severity Reaction Status Date / Time codeine Allergy Unknown Verified 06/28/19 11:45 [From Tylenol-Codeine] ketorolac [From Toradol] Allergy Unknown Verified 06/28/19 11:45 tramadol Allergy Unknown Verified 06/28/19 11:45 Review of Systems ROS Statement: Those systems with pertinent positive or pertinent negative responses have been documented in the HPI. ROS Other: All systems not noted in ROS Statement are negative. Past Medical History Past Medical History: Hypertension Additional Past Medical History / Comment(s): chronic pancreatitis History of Any Multi-Drug Resistant Organisms: None Reported, C-DIFF Date of last positivie culture/infection: 2013 Past Surgical History: Appendectomy, Cholecystectomy, Orthopedic Surgery Additional Past Surgical History / Comment(s): left ankle times 4 Past Psychological History: Anxiety, Depression Smoking Status: Current every day smoker Past Alcohol Use History: Rare Past Drug Use History: None Reported General Exam - General Exam Comments Initial Comments: GENERAL: Well-appearing, well-nourished and in no acute distress, but appears uncomfortable. HEAD: Atraumatic, normocephalic. EYES: Pupils equal round and reactive to light, extraocular movements intact, sclera anicteric, conjunctiva are normal. ENT: TMs normal, nares patent, oropharynx clear without exudates. Moist mucous membranes. NECK: Normal range of motion, supple without lymphadenopathy or JVD. LUNGS: Breath sounds clear to auscultation bilaterally and equal. No wheezes rales or rhonchi. HEART: Regular rate and rhythm without murmurs, rubs or gallops. ABDOMEN: Tender to palpation in the left upper quadrant and epigastric area. Soft, normoactive bowel sounds. No guarding, no rebound. No masses appreciated. : Deferred EXTREMITIES: Normal range of motion, no pitting or edema. No clubbing or cyanosis. NEUROLOGICAL: Cranial nerves II through XII grossly intact. Normal speech, normal gait. PSYCH: Normal mood, normal affect. SKIN: Warm, Dry, normal turgor, no rashes or lesions noted. Limitations: no limitations Course Vital Signs 06/28/19 06/28/19 11:45 15:00 Temperature 97.7 F Pulse Rate 90 84 Respiratory 18 16 Rate Blood Pressure 127/87 129/88 O2 Sat by Pulse 99 100 Oximetry Medical Decision Making - Medical Decision Making Patient is a 28-year-old male presenting with left upper quadrant and epigastric pain 2-3 weeks. Patient has history of pancreatitis and thought it was acute f lare. Vital signs are stable upon arrival. Lab work today shows no acute abnormalities, lipase and amylase are normal. Computed tomography scan of the abdomen shows a nonobstructing 2 mm left-sided renal stone, no other acute abnormalities. Patient was given fluids, nausea control, pain meds reports improvement in symptoms. Discussed the patient's most likely related to a viral GI bug or related to that kidney stone. Patient will be given Zofran as needed for nausea. Patient will follow up with his PCP and will also be given GI referral. Patient stable for discharge at this time. Return parameters were discussed with the patient he verbalizes understanding. Case discussed with Dr. Ramirez. - Lab Data Result diagrams: 06/28/19 12:50 06/28/19 12:50 Lab Results 06/28/19 06/28/19 06/28/19 Range/Units 12:50 12:50 12:50 WBC 7.9 (3.8-10.6) k/uL RBC 4.97 (4.30-5.90) m/uL Hgb 14.4 (13.0-17.5) gm/dL Hct 42.6 (39.0-53.0) % MCV 85.7 (80.0-100.0) fL MCH 29.0 (25.0-35.0) pg MCHC 33.8 (31.0-37.0) g/dL RDW 13.7 (11.5-15.5) % Plt Count 269 (150-450) k/uL Neutrophils % 59 % Lymphocytes % 31 % Monocytes % 6 % Eosinophils % 2 % Basophils % 0 % Neutrophils # 4.7 (1.3-7.7) k/uL Lymphocytes # 2.4 (1.0-4.8) k/uL Monocytes # 0.5 (0-1.0) k/uL Eosinophils # 0.2 (0-0.7) k/uL Basophils # 0.0 (0-0.2) k/uL PT 11.0 (9.0-12.0) sec INR 1.0 (<1.2) APTT 22.7 (22.0-30.0) sec Sodium 142 (137-145) mmol/L Potassium 3.9 (3.5-5.1) mmol/L Chloride 105 (98-107) mmol/L Carbon Dioxide 26 (22-30) mmol/L Anion Gap 11 mmol/L BUN 10 (9-20) mg/dL Creatinine 1.13 (0.66-1.25) mg/dL Est GFR (CKD-EPI)AfAm >90 (>60 ml/min/1.73 sqM) Est GFR (CKD-EPI)NonAf 87 (>60 ml/min/1.73 sqM) Glucose 97 (74-99) mg/dL Calcium 8.9 (8.4-10.2) mg/dL Total Bilirubin 0.4 (0.2-1.3) mg/dL AST 32 (17-59) U/L ALT 35 (21-72) U/L Alkaline Phosphatase 53 (38-126) U/L Total Protein 7.6 (6.3-8.2) g/dL Albumin 4.5 (3.5-5.0) g/dL Amylase 53 (30-110) U/L Lipase 48 (23-300) U/L Urine Color Urine Appearance (Clear) Urine pH (5.0-8.0) Ur Specific [place] (1.001-1.035) Urine Protein (Negative) Urine Glucose (UA) (Negative) Urine Ketones (Negative) Urine Blood (Negative) Urine Nitrite (Negative) Urine Bilirubin (Negative) Urine Urobilinogen (<2.0) mg/dL Ur Leukocyte Esterase (Negative) 06/28/19 Range/Units 13:24 WBC (3.8-10.6) k/uL RBC (4.30-5.90) m/uL Hgb (13.0-17.5) gm/dL Hct (39.0-53.0) % MCV (80.0-100.0) fL MCH (25.0-35.0) pg MCHC (31.0-37.0) g/dL RDW (11.5-15.5) % Plt Count (150-450) k/uL Neutrophils % % Lymphocytes % % Monocytes % % Eosinophils % % Basophils % % Neutrophils # (1.3-7.7) k/uL Lymphocytes # (1.0-4.8) k/uL Monocytes # (0-1.0) k/uL Eosinophils # (0-0.7) k/uL Basophils # (0-0.2) k/uL PT (9.0-12.0) sec INR (<1.2) APTT (22.0-30.0) sec Sodium (137-145) mmol/L Potassium (3.5-5.1) mmol/L Chloride (98-107) mmol/L Carbon Dioxide (22-30) mmol/L Anion Gap mmol/L BUN (9-20) mg/dL Creatinine (0.66-1.25) mg/dL Est GFR (CKD-EPI)AfAm (>60 ml/min/1.73 sqM) Est GFR (CKD-EPI)NonAf (>60 ml/min/1.73 sqM) Glucose (74-99) mg/dL Calcium (8.4-10.2) mg/dL Total Bilirubin (0.2-1.3) mg/dL AST (17-59) U/L ALT (21-72) U/L Alkaline Phosphatase (38-126) U/L Total Protein (6.3-8.2) g/dL Albumin (3.5-5.0) g/dL Amylase (30-110) U/L Lipase (23-300) U/L Urine Color Yellow Urine Appearance Clear (Clear) Urine pH 6.0 (5.0-8.0) Ur Specific [place] 1.025 (1.001-1.035) Urine Protein Trace H (Negative) Urine Glucose (UA) Negative (Negative) Urine Ketones Negative (Negative) Urine Blood Negative (Negative) Urine Nitrite Negative (Negative) Urine Bilirubin Negative (Negative) Urine Urobilinogen <2.0 (<2.0) mg/dL Ur Leukocyte Esterase Negative (Negative) - EKG Data EKG Comments: Ventricular rate 72, AL interval 154, , QTC 444. Normal sinus rhythm. No acute ST segment changes. Disposition Clinical Impression: Abdominal pain, Left renal stone Disposition: HOME SELF-CARE Condition: Stable Instructions (If sedation given, give patient instructions): Abdominal Pain (ED) Additional Instructions: Please return to the Emergency Department if symptoms worsen or any other concerns. Follow-up with PCP this week. Take Zofran as needed for nausea. Continue to increase fluid intake. Prescriptions: Ondansetron Odt [Zofran Odt] 4 mg PO Q8HR PRN #10 tab PRN Reason: Nausea Is patient prescribed a controlled substance at d/c from ED?: No Referrals: Leila Ryan MD [Primary Care Provider] - 1-2 days Emeli Hernandez MD [STAFF PHYSICIAN] - 1-2 days
[2019-06-28 15:05] VITALS: BP 129/88; PULSE 84; RESP 16
== END 2019-06-28 15:23 | disposition home or self-care (01) ==
LOC: EC 11:40
DX: N20.0 Calculus of kidney (principal); R10.12 Left upper quadrant pain; R10.13 Epigastric pain; R19.7 Diarrhea, unspecified; I10 Essential (primary) hypertension; F17.200 Nicotine dependence, unspecified, uncomplicated; Z88.5 Allergy status to narcotic agent; Z88.6 Allergy status to analgesic agent; Z79.899 Other long term (current) drug therapy; Z87.19 Personal history of other diseases of the digestive system; Z90.49 Acquired absence of other specified parts of digestive tract
CPT/HCPCS: 36415; 93005; 80053; 82150; 83690; 85025; 85610; 85730; 81003; 74177; 99284; 96374; 96375 ×3; 96361; J2270; J2765; J2405; C9113; Q9967

== ENCOUNTER 2019-08-30 16:11 | Emergency (ER) | payer BC, OTHER ==
[2019-08-30] MEDS ORDERED: SODIUM CHLORIDE 0.9% 1,000 ML IV STA (17:40)
[2019-08-30] MEDS ORDERED: ONDANSETRON 4 MG/2 ML VIAL IVP STA (17:40)
[2019-08-30] MEDS ORDERED: HYDROmorphone 0.5 MG/0.5 ML SYRINGE IVP STA ×2 (17:40→19:08)
--- NOTE | 2019-08-30 17:46 | ED ---
General Adult HPI - General Chief complaint: Abdominal Pain Stated complaint: Stomach pain Time Seen by Provider: 08/30/19 17:30 Source: patient Mode of arrival: ambulatory Limitations: no limitations - History of Present Illness Initial comments: Dictation was produced using [employer] dictation software. please excuse any grammatical, word or spelling errors. Chief Complaint: 28-year-old male who reports history of chronic pick her marnie awan presents with abdominal pain, nausea vomiting diarrhea. History of Present Illness:-year-old male. He reports that he has history of chronic pancreatitis. Patient states over the last several days he's been having worsening abdominal pain. He locates the pain to his epigastric area with radiation to his back. He reports that this is typical of his typical pancreatitis pain. Patient states that he has been so nauseous that he is unable to keep anything down. Patient states he does not have a specific GI doctor or physician that manages his chronic pancreatitis. Does have history of cholecystectomy and appendectomy. Patient states his diarrhea is not bilious nonbloody. His emesis is clear and nonbilious and nonbloody. Patient states he comes immediately nauseous and experiences significant pain immediately after eating. Denies any constitutional symptoms. The ROS documented in this emergency department record has been reviewed and confirmed by me. Those systems with pertinent positive or negative responses have been documented in the HPI. All other systems are other negative and/or noncontributory. PHYSICAL EXAM: General Impression: Alert and oriented x3, not in acute distress HEENT: Normocephalic atraumatic, extra-ocular movements intact, pupils equal and reactive to light bilaterally, mucous membranes moist. Cardiovascular: Heart regular rate and rhythm, S1&S2 audible, no murmurs, rubs or gallops Chest: Lungs clear to auscultation bilaterally, no rhonchi, no wheeze, no rales Abdomen: Bowel sounds present, abdomen soft, mild tenderness to the epigastric area, non-distended, no organomegaly Musculoskeletal: Pulses present and equal in all extremities, no peripheral edema Motor: no focal deficits noted Neurological: CN II-XII grossly intact, no focal motor or sensory deficits noted Skin: Intact with no visualized rashes Psych: Normal affect and mood ED course: 28 yo Male presents with nausea vomiting abdominal pain and diarrhea. He reports a history of chronic pancreatitis. He states that his symptoms are typical of his pancreatitis pain. Vital signs upon arrival are within acceptable limits. review was performed. Patient has a overdose risk or 580. He is received prescriptions for opiates, analgesics and Lyrica. Last prescription was filled in March of last year for tramadol. There is some concern of drug-seeking behavior. Denies any blood in his diarrhea. No recent travel, concerns of food poisoning, camping or ingestion of contaminated water. Patient is given IV analgesics, antiemetics and intravenous fluids patient was reevaluated at bedside states that his nausea is improved while still having some pain. He also requested work note. Patient is now telling me that his symptoms are very different from what he's ever experienced in the past. CT abdomen and pelvis with IV contrast was ordered. CT is unremarkable for any acute processes. There is however mention of possible lipoma within the ileum Lumen. Patient was notified of the results told to follow-up with primary care physician or guarding these findings. Patient also given referral to deputy general counsel. EKG interpretation: Ventricular rate 70, normal sinus rhythm, NJ interval 1:30, care's 96, QTC 428. No NJ prolongation, no QTC prolongation, no ST or T-wave changes noted. . Overall, this EKG is unremarkable - Related Data Home Medications Medication Instructions Recorded Confirmed Ibuprofen [Motrin] 600 mg PO BID PRN 01/15/19 01/15/19 Metoprolol Tartrate [Lopressor] 50 mg PO BID 01/15/19 01/15/19 Ondansetron HCl [Zofran] 8 mg PO BID PRN 01/15/19 01/15/19 cloNIDine 0.1 MG/24HR PATCH 1 patch TRANSDERM Q7D 01/15/19 01/15/19 [Catapres-TTS] oxyCODONE HCL [oxyCODONE HCL (IR)] 10 mg PO Q4H PRN 01/15/19 01/15/19 Previous Rx's Medication Instructions Recorded Ondansetron Odt [Zofran Odt] 4 mg PO Q8HR PRN #10 tab 06/28/19 Allergies Allergy/AdvReac Type Severity Reaction Status Date / Time codeine Allergy Unknown Verified 08/30/19 17:23 [From Tylenol-Codeine] ketorolac [From Toradol] Allergy Unknown Verified 08/30/19 17:23 tramadol Allergy Unknown Verified 08/30/19 17:23 Review of Systems ROS Statement: Those systems with pertinent positive or pertinent negative responses have been documented in the HPI. ROS Other: All systems not noted in ROS Statement are negative. Past Medical History Past Medical History: Hypertension Additional Past Medical History / Comment(s): chronic pancreatitis History of Any Multi-Drug Resistant Organisms: None Reported, C-DIFF Date of last positivie culture/infection: 2013 Past Surgical History: Appendectomy, Cholecystectomy, Orthopedic Surgery Additional Past Surgical History / Comment(s): left ankle times 4 Past Psychological History: Anxiety, Depression Smoking Status: Current every day smoker Past Alcohol Use History: Rare Past Drug Use History: None Reported General Exam Limitations: no limitations Course Vital Signs 08/30/19 08/30/19 08/30/19 17:21 18:40 19:10 Temperature 98.4 F Pulse Rate 89 77 81 Respiratory 20 18 17 Rate Blood Pressure 138/89 145/110 132/101 O2 Sat by Pulse 99 98 96 Oximetry 08/30/19 19:50 Temperature Pulse Rate 82 Respiratory 17 Rate Blood Pressure 133/84 O2 Sat by Pulse 96 Oximetry Medical Decision Making - Lab Data Result diagrams: 08/30/19 18:07 08/30/19 18:07 Lab Results 08/30/19 08/30/19 08/30/19 Range/Units 18:07 18:07 18:07 WBC 8.4 (3.8-10.6) k/uL RBC 5.20 (4.30-5.90) m/uL Hgb 15.2 (13.0-17.5) gm/dL Hct 45.6 (39.0-53.0) % MCV 87.6 (80.0-100.0) fL MCH 29.3 (25.0-35.0) pg MCHC 33.4 (31.0-37.0) g/dL RDW 13.4 (11.5-15.5) % Plt Count 272 (150-450) k/uL Neutrophils % 61 % Lymphocytes % 28 % Monocytes % 5 % Eosinophils % 3 % Basophils % 1 % Neutrophils # 5.1 (1.3-7.7) k/uL Lymphocytes # 2.4 (1.0-4.8) k/uL Monocytes # 0.4 (0-1.0) k/uL Eosinophils # 0.3 (0-0.7) k/uL Basophils # 0.1 (0-0.2) k/uL Sodium 139 (137-145) mmol/L Potassium 4.5 (3.5-5.1) mmol/L Chloride 107 (98-107) mmol/L Carbon Dioxide 22 (22-30) mmol/L Anion Gap 10 mmol/L BUN 13 (9-20) mg/dL Creatinine 1.07 (0.66-1.25) mg/dL Est GFR (CKD-EPI)AfAm >90 (>60 ml/min/1.73 sqM) Est GFR (CKD-EPI)NonAf >90 (>60 ml/min/1.73 sqM) Glucose 104 H (74-99) mg/dL Calcium 8.9 (8.4-10.2) mg/dL Total Bilirubin 0.6 (0.2-1.3) mg/dL AST 30 (17-59) U/L ALT 31 (4-49) U/L Alkaline Phosphatase 60 (38-126) U/L Total Protein 7.6 (6.3-8.2) g/dL Albumin 4.5 (3.5-5.0) g/dL Lipase 56 (23-300) U/L Disposition Clinical Impression: Abdominal pain Disposition: HOME SELF-CARE Condition: Good Instructions (If sedation given, give patient instructions): Abdominal Pain (ED) Additional Instructions: you had an incidental finding of lipoma at the area of the ileum. You are instructed to follow-up with her primary care physician regarding outpatient evaluation of this incidental finding. Is patient prescribed a controlled substance at d/c from ED?: No Referrals: Leila Ryan MD [REFERRING] - 1-2 days Iban Hu MD [STAFF PHYSICIAN] - 1-2 days Time of Disposition: 20:48
[2019-08-30 18:26] LABS: Basophils # (A) 0.1 k/uL (0-0.2); Basophils % (A) 1 %; Eosinophils # (A) 0.3 k/uL (0-0.7); Eosinophils % (A) 3 %; HCT 45.6 % (39.0-53.0); HGB 15.2 gm/dL (13.0-17.5); Lymphocytes # (A) 2.4 k/uL (1.0-4.8); Lymphocytes % (A) 28 %; MCH 29.3 pg (25.0-35.0); MCHC 33.4 g/dL (31.0-37.0); MCV 87.6 fL (80.0-100.0); Mean Platelet Volume 7.3; Monocytes # (A) 0.4 k/uL (0-1.0); Monocytes % (A) 5 %; Neutrophils # (A) 5.1 k/uL (1.3-7.7); Neutrophils % (A) 61 %; Platelet Count 272 k/uL (150-450); RDW 13.4 % (11.5-15.5); WBC 8.4 k/uL (3.8-10.6)
[2019-08-30 18:35] LABS: ALT 31 U/L (4-49); AST 30 U/L (17-59); African American GFR (CKD) >90 (>60 ml/min/1.73 sqM); Albumin 4.5 g/dL (3.5-5.0); Alkaline Phosphatase 60 U/L (38-126); Anion Gap 10 mmol/L; Blood Urea Nitrogen 13 mg/dL (9-20); Calcium 8.9 mg/dL (8.4-10.2); Carbon Dioxide 22 mmol/L (22-30); Chloride 107 mmol/L (98-107); Glucose 104 mg/dL (74-99); Non-African American GFR(CKD) >90 (>60 ml/min/1.73 sqM); Potassium 4.5 mmol/L (3.5-5.1); Sodium 139 mmol/L (137-145); Total Bilirubin 0.6 mg/dL (0.2-1.3); Total Protein 7.6 g/dL (6.3-8.2)
[2019-08-30] MEDS ORDERED: PANTOPRAZOLE 40 MG/10 ML VIAL IVP ONE (19:04)
--- NOTE | 2019-08-30 20:33 | CT ---
EXAMINATION TYPE: CT abdomen pelvis w con DATE OF EXAM: 08/30/2019 COMPARISON: 06/28/2019 HISTORY: Left sided abdominal pain radiaiting into flank area. Hx of chronic pancreatitis. CT DLP: 2843.7 mGycm Automated exposure control for dose reduction was used. CONTRAST: Performed with IV Contrast, patient injected with 100ml mL of Isovue 300. Multiple axial sections were obtained from the diaphragm to the floor the pelvis with intravenous con trast. There is mild atelectasis at the lung bases. Heart is enlarged. There is no pericardial effusion. Liver shows no focal defect. There are clips from cholecystectomy. Bile ducts are not dilated. Spleen is intact. There is no evidence of pancreatic mass. Stomach is intact. I see no sign of pancreatitis . There is no adrenal mass. Kidneys show satisfactory contrast opacification. There is no hydronephrosi s. There is no retroperitoneal adenopathy. There are clips apparently from appendectomy. Ureters are not dilated. Bladder distends smoothly. There is no inguinal hernia. There is no free fluid in the pe lvis. There is 1 cm fat density filling defect within the lumen of the proximal ileum that could be a lipoma. There is no mesenteric edema. There is no ascites or free air. There is no sign of a bowel obstructio n. Lumbar spine is intact. Disc spaces are fairly normal. Posterior elements are intact. Bony pelvis is intact. IMPRESSION: There is some patchy atelectasis at the lung bases. Cardiomegaly. Possible lipoma within the ileum lumen. No evidence of acute or chronic pancreatitis.
[2019-08-30 21:20] VITALS: BP 131/93; PULSE 87; RESP 18; TEMP 97.9
== END 2019-08-30 21:20 | disposition home or self-care (01) ==
LOC: EC 16:11
DX: R10.13 Epigastric pain (principal); R11.2 Nausea with vomiting, unspecified; R19.7 Diarrhea, unspecified; M54.9 Dorsalgia, unspecified; I10 Essential (primary) hypertension; F17.200 Nicotine dependence, unspecified, uncomplicated; Z88.5 Allergy status to narcotic agent; Z88.6 Allergy status to analgesic agent; Z79.899 Other long term (current) drug therapy; Z87.19 Personal history of other diseases of the digestive system; Z90.49 Acquired absence of other specified parts of digestive tract
CPT/HCPCS: 36415; 93005; 80053; 83690; 85025; 74177; 99284; 96374; 96375 ×2; 96376; 96361 ×3; J2405; C9113; J1170; Q9967

== ENCOUNTER 2022-03-20 15:56 | Observation (INO) | payer BC, OTHER ==
[2022-03-20 16:57] LABS: Basophils % (A) 0 %; Eosinophils # (A) 0.1 k/uL (0-0.7); Eosinophils % (A) 2 %; HCT 42.5 % (39.0-53.0); HGB 14.4 gm/dL (13.0-17.5); Lymphocytes # (A) 2.3 k/uL (1.0-4.8); Lymphocytes % (A) 26 %; MCHC 33.9 g/dL (31.0-37.0); MCV 85.5 fL (80.0-100.0); Mean Platelet Volume 6.9; Monocytes # (A) 0.4 k/uL (0-1.0); Monocytes % (A) 5 %; Neutrophils # (A) 5.9 k/uL (1.3-7.7); Neutrophils % (A) 67 %; Platelet Count 275 k/uL (150-450); RBC 4.97 m/uL (4.30-5.90); RDW 12.6 % (11.5-15.5); WBC 8.8 k/uL (3.8-10.6)
[2022-03-20 17:11] LABS: ALT 47 U/L (4-49); AST 45 U/L (17-59); African American GFR (CKD) >90 (>60 ml/min/1.73 sqM); Albumin 4.4 g/dL (3.5-5.0); Alkaline Phosphatase 49 U/L (38-126); Anion Gap 13 mmol/L; Blood Urea Nitrogen 12 mg/dL (9-20); Calcium 8.8 mg/dL (8.4-10.2); Carbon Dioxide 23 mmol/L (22-30); Chloride 103 mmol/L (98-107); Glucose 105 mg/dL (74-99); Non-African American GFR(CKD) 88 (>60 ml/min/1.73 sqM); Potassium 4.2 mmol/L (3.5-5.1); Sodium 139 mmol/L (137-145); Total Bilirubin 0.6 mg/dL (0.2-1.3); Total Protein 7.1 g/dL (6.3-8.2)
--- NOTE | 2022-03-20 17:18 | XR ---
EXAMINATION TYPE: XR chest 2V DATE OF EXAM: 03/20/2022 5:00 PM COMPARISON: Chest radiographs from 05/20/2018 TECHNIQUE: XR chest 2V Frontal and lateral views of the chest. CLINICAL INDICATION:Male, 31 years old with history of pain; FINDINGS: Lungs/Pleura: There is no evidence of pleural effusion, focal consolidation, or pneumothorax. Pulmonary vascularity: Unremarkable. Heart/mediastinum: Cardiomediastinal silhouette is unremarkable. Musculoskeletal: No acute osseous pathology. IMPRESSION: No acute cardiopulmonary disease/process.
[2022-03-20] MEDS ORDERED: NITROGLYCERIN SL TABS 0.4 MG TAB SUBLINGUAL STA (19:37)
[2022-03-20] MEDS ORDERED: ASPIRIN 81 MG PO STA (19:37)
[2022-03-20] MEDS ORDERED: NITROGLYCERIN SL TABS 0.4 MG TAB SUBLINGUAL PRN (19:42)
--- NOTE | 2022-03-20 19:42 | ED ---
General Adult HPI - General Chief complaint: Chest Pain Stated complaint: chest pain and STEPHEN Time Seen by Provider: 03/20/22 19:30 Source: patient Mode of arrival: ambulatory Limitations: no limitations - History of Present Illness Initial comments: Dictation was produced using [employer] dictation software. please excuse any grammatical, word or spelling errors. Chief Complaint: 31-year-old male presents to the emergency department for chest pain History of Present Illness: 31-year-old male who presents to emergency Department from [place]. Patient currently admits to cigarettes for detoxification. States that today he began having pressure-like sensations to his chest. He states that it feels like an elephant sitting on his chest. Patient states he rates to his jaw and associated with diaphoresis and nausea. Patient denies any cardiac history. Does report strong family history of cardiac disease. The ROS documented in this emergency department record has been reviewed and confirmed by me. Those systems with pertinent positive or negative responses have been documented in the HPI. All other systems are other negative and/or noncontributory. PHYSICAL EXAM: General Impression: Alert and oriented x3, not in acute distress HEENT: Normocephalic atraumatic, extra-ocular movements intact, pupils equal and reactive to light bilaterally, mucous membranes moist. Cardiovascular: Heart regular rate and rhythm Chest: Able to complete full sentences, no retractions, no tachypnea Abdomen: abdomen soft, non-tender, non-distended, no organomegaly Musculoskeletal: Pulses present and equal in all extremities, no peripheral edema Motor: no focal deficits noted Neurological: CN II-XII grossly intact, no focal motor or sensory deficits noted Skin: Intact with no visualized rashes Psych: Normal affect and mood ED course: 31-year-old well-appearing male presents to the emergency department for age with chest pain with typical features. Vital signs upon arrival are within acceptable limits. Patient was initially evaluated by triage nurse per HPI protocol. Labs and imaging was ordered. CBC, metabolic panel is unremarkable. Troponin is negative. EKG does not show any signs of ischemia or infarction. Patient given aspirin nitroglycerin. Patient will be admitted for cardiac monitoring and cardiology consultation. EKG interpretation: Ventricular rate 90, sinus rhythm, IL interval 112, care is 80, QTc 410. No IL prolongation, no QTC prolongation, no ST or T-wave changes noted. EKG compared to 08/30/2019 showing no changes. Overall, this EKG is unremarkable - Related Data Home Medications Medication Instructions Recorded Confirmed Ibuprofen [Motrin] 600 mg PO BID PRN 01/15/19 01/15/19 Metoprolol Tartrate [Lopressor] 50 mg PO BID 01/15/19 01/15/19 cloNIDine 0.1 MG/24HR PATCH 1 patch TRANSDERM Q7D 01/15/19 01/15/19 [Catapres-TTS] ondansetron HCL [Zofran] 8 mg PO BID PRN 01/15/19 01/15/19 oxyCODONE HCL [oxyCODONE HCL (IR)] 10 mg PO Q4H PRN 01/15/19 01/15/19 Previous Rx's Medication Instructions Recorded Ondansetron Odt [Zofran Odt] 4 mg PO Q8HR PRN #10 tab 06/28/19 Allergies Allergy/AdvReac Type Severity Reaction Status Date / Time codeine Allergy Unknown Verified 03/20/22 16:06 [From Tylenol-Codeine] ketorolac [From Toradol] Allergy Unknown Verified 03/20/22 16:06 tramadol Allergy Unknown Verified 03/20/22 16:06 Review of Systems ROS Statement: Those systems with pertinent positive or pertinent negative responses have been documented in the HPI. ROS Other: All systems not noted in ROS Statement are negative. Past Medical History Past Medical History: Hypertension Additional Past Medical History / Comment(s): chronic pancreatitis History of Any Multi-Drug Resistant Organisms: None Reported, C-DIFF Date of last positivie culture/infection: 2013 Past Surgical History: Appendectomy, Cholecystectomy, Orthopedic Surgery Additional Past Surgical History / Comment(s): left ankle times 4 Past Psychological History: Anxiety, Depression Smoking Status: Vaper Past Alcohol Use History: Rare Past Drug Use History: Heroin General Exam Limitations: no limitations Course Vital Signs 03/20/22 16:03 Temperature 98.4 F Pulse Rate 89 Respiratory 22 Rate Blood Pressure 105/67 O2 Sat by Pulse 98 Oximetry Medical Decision Making - Lab Data Result diagrams: 03/20/22 16:44 03/20/22 16:44 Lab Results 03/20/22 03/20/22 03/20/22 Range/Units 16:44 16:44 16:44 WBC 8.8 (3.8-10.6) k/uL RBC 4.97 (4.30-5.90) m/uL Hgb 14.4 (13.0-17.5) gm/dL Hct 42.5 (39.0-53.0) % MCV 85.5 (80.0-100.0) fL MCH 29.0 (25.0-35.0) pg MCHC 33.9 (31.0-37.0) g/dL RDW 12.6 (11.5-15.5) % Plt Count 275 (150-450) k/uL MPV 6.9 Neutrophils % 67 % Lymphocytes % 26 % Monocytes % 5 % Eosinophils % 2 % Basophils % 0 % Neutrophils # 5.9 (1.3-7.7) k/uL Lymphocytes # 2.3 (1.0-4.8) k/uL Monocytes # 0.4 (0-1.0) k/uL Eosinophils # 0.1 (0-0.7) k/uL Basophils # 0.0 (0-0.2) k/uL Sodium 139 (137-145) mmol/L Potassium 4.2 (3.5-5.1) mmol/L Chloride 103 (98-107) mmol/L Carbon Dioxide 23 (22-30) mmol/L Anion Gap 13 mmol/L BUN 12 (9-20) mg/dL Creatinine 1.10 (0.66-1.25) mg/dL Est GFR (CKD-EPI)AfAm >90 (>60 ml/min/1.73 sqM) Est GFR (CKD-EPI)NonAf 88 (>60 ml/min/1.73 sqM) Glucose 105 H (74-99) mg/dL Calcium 8.8 (8.4-10.2) mg/dL Total Bilirubin 0.6 (0.2-1.3) mg/dL AST 45 (17-59) U/L ALT 47 (4-49) U/L Alkaline Phosphatase 49 (38-126) U/L Troponin I <0.012 (0.000-0.034) ng/mL Total Protein 7.1 (6.3-8.2) g/dL Albumin 4.4 (3.5-5.0) g/dL Disposition Clinical Impression: Chest pain Disposition: ADMITTED IP TO THIS HOSP Condition: Fair Referrals: None,Stated [Primary Care Provider] - 1-2 days Decision Time: 19:42
[2022-03-20 22:50] LABS: Partial Thromboplastin Time 23.8 sec (22.0-30.0)
[2022-03-21] MEDS ORDERED: ONDANSETRON 4 MG TAB PO PRN (03:58)
[2022-03-21] MEDS ORDERED: cloNIDine HCL 0.1 MG TAB PO PRN (03:58)
[2022-03-21] MEDS ORDERED: LOPERAMIDE 2 MG CAP PO PRN (03:58)
[2022-03-21] MEDS ORDERED: HYOSCYAMINE SULFATE 0.125 MG TAB PO PRN (03:58)
[2022-03-21] MEDS ORDERED: LORazepam 1 MG TAB PO PRN (03:58)
[2022-03-21] MEDS ORDERED: MULTIVITAMINS, THERA 1 EACH TAB PO PRN (03:58)
[2022-03-21] MEDS ORDERED: ACETAMINOPHEN TAB 325 MG TAB PO PRN (03:58)
[2022-03-21] MEDS ORDERED: THIAMINE 100 MG TAB PO PRN (03:58)
--- NOTE | 2022-03-21 04:07 | P.HPIM ---
History of Present Illness H&P Date: 03/20/22 Chief Complaint: chest pain 31 year old male with alcohol dependance , hypertension patient comes in from [facility] due to chest pain. he has been there for 2 weeks now for alcohol rehab. and suddenly started experiencing crushing left sided chest pain radiating to his left arm and epigastric region and neck. he was resting doing nothing when this started , and was 10/10 in severity with difficulty breathing, nausea diaphoresis and palpitations. he was feeling dizzy and weak , for which he was sent in here for cardiac evaluation . he reports positive family history of CAD. he denies smoking or illicit drugs, but admits to alcohol abuse and dependance,. no recent travel or hospital stay , no history of blood clots. no history of cardiac workup , denies any mental health illness. he denies any fever, chills, headaches, cough, abd pain , changes in bowel or urinary habits. denies any focal neuro deficits. initial workup in the ED was unremarkable EKG no acute ST changes, trops negative. Review of Systems Pertinent positives as noted in HPI. All other systems were reviewed and are negative Past Medical History Past Medical History: Hypertension Additional Past Medical History / Comment(s): chronic pancreatitis History of Any Multi-Drug Resistant Organisms: None Reported, C-DIFF Date of last positivie culture/infection: 2013 Past Surgical History: Appendectomy, Cholecystectomy, Orthopedic Surgery Additional Past Surgical History / Comment(s): left ankle times 4 Past Psychological History: Anxiety, Depression Smoking Status: Vaper Past Alcohol Use History: Rare Past Drug Use History: Heroin - Past Family History family Family Medical History: Coronary Artery Disease (CAD) Medications and Allergies Home Medications Medication Instructions Recorded Confirmed Type ondansetron HCL [Zofran] 8 mg PO Q6H PRN 01/15/19 03/20/22 History Acetaminophen [Tylenol] 650 mg PO TID PRN 03/20/22 03/20/22 History Calcium/Magnesium/Zinc/Ginny D 1 tab PO DAILY PRN 03/20/22 03/20/22 History Chlorpheniramine Maleate 4 mg PO DAILY PRN 03/20/22 03/20/22 History [Chlor-Trimeton] Hyoscyamine Sulfate [Levsin] 0.125 mg PO QID PRN 03/20/22 03/20/22 History Ibuprofen [Motrin Ib] 600 mg PO Q6H PRN 03/20/22 03/20/22 History LORazepam [Ativan] 1 mg PO TID PRN 03/20/22 03/20/22 History Loperamide HCl [Imodium A-D] 4 mg PO QID PRN 03/20/22 03/20/22 History Multivitamins, Thera [Multivitamin 1 tab PO DAILY PRN 03/20/22 03/20/22 History (formulary)] Thiamine [Vitamin B-1] 100 mg PO DAILY PRN 03/20/22 03/20/22 History buprenorphine HCL [Subutex] See Taper SUBLINGUAL DIRECTED 03/20/22 03/20/22 History cloNIDine HCL [Catapres] 0.1 mg PO QID PRN 03/20/22 03/20/22 History Allergies Allergy/AdvReac Type Severity Reaction Status Date / Time codeine Allergy Unknown Verified 03/20/22 20:49 [From Tylenol-Codeine] ketorolac [From Toradol] Allergy Unknown Verified 03/20/22 20:49 tramadol Allergy Unknown Verified 03/20/22 20:49 Physical Exam Vitals: Vital Signs Temp Pulse Resp BP Pulse Ox 03/20/22 22:48 83 18 122/83 96 03/20/22 16:03 98.4 F 89 22 105/67 98 Intake and Output 03/20/22 03/20/22 03/21/22 14:59 22:59 06:59 Other: Weight 127.006 kg Constitutional: No acute distress, conversant, pleasant Eyes: Anicteric sclerae, moist conjunctiva, Pupils equal round reactive to light ENMT: NC/AT Oropharynx clear, no erythema, or exudates Neck: Supple, no masses, or JVD No carotid bruits No thyromegaly Lungs: Clear to auscultation Clear to percussion Normal respiratory effort, no accessory muscle use Cardiovascular: Heart regular in rate and rhythm, No murmurs, gallops, or rubs No peripheral edema reproducible pain with palpation of the left side of the chest Abdominal: Soft Nontender, no guarding, rebound or rigidity Abdomen moving with respiration Normoactive bowel sounds No hepatomegaly, No splenomegaly No palpable mass No abdominal wall hernia noted Skin: Normal temperature, tone, texture, turgor No induration No subcutaneous nodules No rash, lesions No ulcers Extremities: No digital cyanosis No clubbing Pedal pulses intact and symmetrical Radial pulses intact and symmetrical No calf tenderness Psychiatric: Alert and oriented to person, place and time Appropriate affect fair judgement Neuro Muscles Strength 5/5 in all 4 extremities Sensation to light touch grossly present throughout Cranial nerves II-XII grossly intact No focal sensory deficits Lymphatics: no palpable cervical or supraclavicular , or inguinal lymph nodes Results CBC & Chem 7: 03/20/22 16:44 03/20/22 16:44 Labs: Abnormal Lab Results - Last 24 Hours (Table) 03/20/22 Range/Units 16:44 Glucose 105 H (74-99) mg/dL Assessment and Plan Assessment: atypical chest pain rule out ACS EKG no acute changes CXR no acute pathology trops negative X2 cardiac catheterization technologist monitor vital signs ASA, statin cardiology consult A1c, lipid panel , TSH pain control hypertension , controlled resume clonidine DVT PPX heparin sc tid full code
[2022-03-21] MEDS ORDERED: HEPARIN SODIUM,PORCINE/PF 5,000 UNIT/0.5 ML SYRINGE SQ SCH (08:00)
[2022-03-21] MEDS ORDERED: ASPIRIN 325 MG TAB PO SCH (09:00)
[2022-03-21 09:23] LABS: Chol/HDL Ratio 5.93 Ratio; LDL Cholesterol,Calculated 129.6 mg/dL (0.0-131.0)
[2022-03-21] MEDS ORDERED: KETOROLAC 15 MG/ML 1 ML VIAL IVP STA (09:41)
--- NOTE | 2022-03-21 11:21 | CA ---
Transthoracic Echo Report Name: Brayden Marshall Age: 31 Gender: M : 1990 Exam Date: 03/21/2022 08:26 Exam Location: [facility] Ht (in): 64 Wt (lb): 280 Ordering Physician: Vicky Sams Attending/Referring Phys: Linen Checker Anne Lockhart RDCS Procedure CPT: Indications: CP Cardiac Hx: Technical Quality: Good Contrast 1: Total Dose (mL): Contrast 2: Total Dose (mL): MEASUREMENTS (Male / Female) Normal Values 2D ECHO LV Diastolic Diameter PLAX 3.9 cm 4.2 - 5.9 / 3.9 - 5.3 cm LV Systolic Diameter PLAX 1.3 cm IVS Diastolic Thickness 0.9 cm 0.6 - 1.0 / 0.6 - 0.9 cm LVPW Diastolic Thickness 1.2 cm 0.6 - 1.0 / 0.6 - 0.9 cm LV Relative Wall Thickness 0.6 RV Internal Dim ED PLAX 3.6 cm M-MODE Aortic Root Diameter MM 3.2 cm LA Systolic Diameter MM 2.8 cm LA Ao Ratio MM 0.9 MV E Point Septal Separation 0.4 cm AV Cusp Separation MM 1.6 cm DOPPLER AV Peak Velocity 116.3 cm/s AV Peak Gradient 5.4 mmHg MV Area PHT 4.0 cm??? Mitral E Point Velocity 91.6 cm/s Mitral A Point Velocity 35.6 cm/s Mitral E to A Ratio 2.6 MV Deceleration Time 191.4 ms MV E' Velocity 9.0 cm/s Mitral E to MV E' Ratio 10.2 TR Peak Velocity 219.8 cm/s TR Peak Gradient 19.3 mmHg Right Ventricular Systolic Press 24.3 mmHg FINDINGS Left Ventricle Left ventricular ejection fraction is estimated at 55-60_ %. Normal Left ventricular size, wall thickness, systolic function with no obvious regional wall motion abnormalities. Normal Left ventricular diastolic filling pattern. Left ventricular cavity size normal. Right Ventricle Moderate right ventricular dilatation. Right Atrium The right atrium is normal in size. Left Atrium The left atrium is normal in size. Mitral Valve Structurally normal mitral valve without significant stenosis or prolapse. There is trace mitral regurgitation. Aortic Valve Structurally normal aortic valve without significant sclerosis or stenosis. There is no aortic regurgitation. Tricuspid Valve Structurally normal tricuspid valve without significant stenosis. Pulmonary artery systolic pressure is normal. Trace tricuspid regurgitation. Pulmonic Valve Structurally normal pulmonic valve without significant stenosis. There is no pulmonic regurgitation. Pericardium Normal pericardium without effusion. Aorta Normal aortic root dimension. CONCLUSIONS Normal left ventricular size wall motion systolic function Previewed by: Dr. Beau Hernandez MD (Electronically Signed) Final Date: 21 March 2022 11:20
--- NOTE | 2022-03-21 12:25 | CONS ---
CONSULTATION CHIEF COMPLAINT: Chest pain. HISTORY OF PRESENT ILLNESS: Brayden is a 31-year-old gentleman who is currently going through [place] for alcohol rehab, presents to the hospital complaining of chest discomfort. The patient has mild sharp discomfort that is really all over his body including the chest, seems musculoskeletal. It is not associated with diaphoresis, no shortness of breath. EKG did not reveal ischemic changes. Cardiac enzymes have been negative. PAST MEDICAL HISTORY: Negative for hypertension, diabetes, dyslipidemia. Significant for ETOH abuse. MEDICATIONS AT HOME: Included, 1. Zofran. 2. Tylenol. 3. Imodium. 4. Levsin. 5. Catapres. 6. Subutex. 7. Ativan. ALLERGIES: To codeine, Toradol, and tramadol. FAMILY HISTORY: Significant for coronary artery disease in his father. SOCIAL HISTORY: Significant for smoking and ETOH abuse. There is no history of drug abuse. REVIEW OF SYSTEMS: 24 out of 24 review of systems has been performed. Pertinents are as documented in History of Presenting Illness. PHYSICAL EXAMINATION: GENERAL: Comfortable at rest. VITAL SIGNS: Stable. NECK: There is no jugular venous distention. Carotid upstroke is normal. There is no bruit. CHEST: Good air entry bilaterally. HEART: First and second heart sounds. No gallop. No murmur. No rub. ABDOMEN: Soft, nontender. EXTREMITIES: Did not reveal any edema. Peripheral pulses are felt. LABORATORY DATA: Labs are negative for troponins. ASSESSMENT: 1. Atypical chest pain. 2. ETOH abuse. PLAN: Watch out for alcohol withdrawal. I will obtain a 2D echo to assess LV function and wall motion. If this is normal, he does not require any further testing and can be sent back to [facility] hopefully tomorrow. Increase his activity in the meantime. MMODL / IJN: [id number] /
--- NOTE | 2022-03-21 13:00 | P.DS ---
Providers Date of admission: 03/20/22 19:42 Expected date of discharge: 03/21/22 Attending physician: Larry Arauz MD Consults: 03/20/22 19:42 Consult Physician Urgent Consulting Provider: Roybn Trammell Consult Reason/Comments: chest pain Do you want consulting provider notified?: Yes Primary care physician: Stated None Hospital Course: 31 year old male with alcohol dependance , hypertension patient comes in from [facility] due to chest pain. he has been there for 2 weeks now for alcohol rehab. and suddenly started experiencing crushing left sided chest pain radiating to his left arm and epigastric region and neck. he was resting doing nothing when this started , and was 10/10 in severity with difficulty breathing, nausea diaphoresis and palpitations. he was feeling dizzy and weak , for which he was sent in here for cardiac evaluation . he reports positive family history of CAD. he denies smoking or illicit drugs, but admits to alcohol abuse and dependance,. no recent travel or hospital stay , no history of blood clots. no history of cardiac workup , denies any mental health illness. he denies any fever, chills, headaches, cough, abd pain , changes in bowel or urinary habits. denies any focal neuro deficits. Troponins were trended and ACS was ruled out. Cardiology was consulted and recommended echocardiogram. Echocardiogram showed EF of 55-60% with no regional wall motion abnormalities. D-Dimer was negative with low concerns for pulmonary embolus. Lipid panel showed total cholesterol 216, triglycerides 250, LDL 129. Cardiology recommended no further workup. Patient was seen and examined on 03/21/2022. He reported left-sided chest pain, described as stabbing in nature radiating to the left shoulder and back of the head. His pain slightly improved after receiving Toradol. General: [non toxic], [no distress], [appears at stated age] Derm: [warm], [dry] Head: [atraumatic], [normocephalic], [symmetric] Eyes: [EOMI], [no lid lag], [anicteric sclera] Mouth: [no lip lesion], [mucus membranes moist] Cardiovascular: [S1S2 reg], [no murmur] Lungs: [CTA bilateral], [no rhonchi, no rales] , [no accessory muscle use] Ext: [no gross muscle atrophy], [no edema], [no contractures] Neuro: [no focal neuro deficits] Psych: [Alert], [oriented], [appropriate affect] Discharge Diagnosis: Atypical chest pain, likely musculoskeletal Dyslipidemia Hypertension Alcohol dependence Pertinent Studies: Echocardiogram Patient Condition at Discharge: Stable Plan - Discharge Summary New Discharge Prescriptions: No Action ondansetron HCL [Zofran] 8 mg PO Q6H PRN PRN Reason: Nausea Thiamine [Vitamin B-1] 100 mg PO DAILY PRN PRN Reason: SUPPLEMENT Ibuprofen [Motrin Ib] 600 mg PO Q6H PRN PRN Reason: Pain LORazepam [Ativan] 1 mg PO TID PRN PRN Reason: Anxiety Acetaminophen [Tylenol] 650 mg PO TID PRN PRN Reason: Pain Multivitamins, Thera [Multivitamin (formulary)] 1 tab PO DAILY PRN PRN Reason: VITAMIN Loperamide HCl [Imodium A-D] 4 mg PO QID PRN PRN Reason: Diarrhea Hyoscyamine Sulfate [Levsin] 0.125 mg PO QID PRN PRN Reason: ABDOMINAL CRAMPING cloNIDine HCL [Catapres] 0.1 mg PO QID PRN PRN Reason: Anxiety Chlorpheniramine Maleate [Chlor-Trimeton] 4 mg PO DAILY PRN PRN Reason: Allergy Symptoms buprenorphine HCL [Subutex] See Taper SUBLINGUAL DIRECTED Calcium/Magnesium/Zinc/Ginny D 1 tab PO DAILY PRN PRN Reason: SUPPLEMENT Discharge Medication List ondansetron HCL [Zofran] 8 mg PO Q6H PRN 01/15/19 [History] Acetaminophen [Tylenol] 650 mg PO TID PRN 03/20/22 [History] Calcium/Magnesium/Zinc/Ginny D 1 tab PO DAILY PRN 03/20/22 [History] Chlorpheniramine Maleate [Chlor-Trimeton] 4 mg PO DAILY PRN 03/20/22 [History] Hyoscyamine Sulfate [Levsin] 0.125 mg PO QID PRN 03/20/22 [History] Ibuprofen [Motrin Ib] 600 mg PO Q6H PRN 03/20/22 [History] LORazepam [Ativan] 1 mg PO TID PRN 03/20/22 [History] Loperamide HCl [Imodium A-D] 4 mg PO QID PRN 03/20/22 [History] Multivitamins, Thera [Multivitamin (formulary)] 1 tab PO DAILY PRN 03/20/22 [History] Thiamine [Vitamin B-1] 100 mg PO DAILY PRN 03/20/22 [History] buprenorphine HCL [Subutex] See Taper SUBLINGUAL DIRECTED 03/20/22 [History] cloNIDine HCL [Catapres] 0.1 mg PO QID PRN 03/20/22 [History] Follow up Appointment(s)/Referral(s): None,Stated [Primary Care Provider] - 1-2 days
[2022-03-21 13:13] VITALS: BP 132/86; PULSE 64; RESP 16; TEMP 98.3
[2022-03-21] MEDS ORDERED: KETOROLAC 15 MG/ML 1 ML VIAL IVP SCH (18:00)
== END 2022-03-21 14:09 | disposition other institution (70) ==
LOC: EC 15:56 → 6NMEDSUR 19:42
PROVIDERS: ADMIT Internal Medicine; ATTEND Internal Medicine
DX: R07.89 Other chest pain (principal); F10.20 Alcohol dependence, uncomplicated; I10 Essential (primary) hypertension; F32.A Depression, unspecified; F41.9 Anxiety disorder, unspecified; K86.1 Other chronic pancreatitis; E78.5 Hyperlipidemia, unspecified; I08.1 Rheumatic disorders of both mitral and tricuspid valves; F17.290 Nicotine dependence, other tobacco product, uncomplicated; Z82.49 Family history of ischemic heart disease and other diseases of the circulatory system; Z79.899 Other long term (current) drug therapy; Z88.5 Allergy status to narcotic agent; Z90.49 Acquired absence of other specified parts of digestive tract
CPT/HCPCS: 96374; 96372; 99285; 36415; 93005; 93306; 85379; 80061; 80053; 84484; 85025; 85610; 85730; 83036; 71046; G0378 ×2; J1885; J1644